=== PATIENT | male | born 1950 | race Caucasian/White ===

== ENCOUNTER 2022-07-15 18:38 | Inpatient (IN) | payer MEDICARE ==
[~2022-07-15 18:38] MED LIST: Iopamidol-370 76% 500 ML 1 ML ONE
[2022-07-15 20:12] LABS: #Eosinphils 0.2 thou/uL (0.0-0.7); #Lymphocytes 1.5 thou/uL (1.20-3.40); #Monocytes 0.7 thou/uL (0.11-0.59); #Neutrophils 4.1 thou/uL (1.40-6.50); %Basophils 0.6 % (0.0-1.0); %Eosinophils 3.2 % (0.0-10.0); %Lymphocytes 22.4 % (21.0-51.0); %Monocytes 10.9 % (0.0-10.0); %Neutrophils 62.9 % (42.0-75.0); Hemoglobin 9.7 g/dL (14.0-18.0); Platelet Count 223 10x3/uL (130-400); RBC Distribution Width 12.6 % (11.5-14.5); Red Blood Cell (RBC) Count 3.11 mill/uL (4.70-6.10); White Blood Cell (WBC) Count 6.5 10x3/uL (4.8-10.8)
[2022-07-15 20:31] LABS: ALT (SGPT) 9 U/L (8-55); AST (SGOT) 10 U/L (5-34); Albumin 3.6 g/dL (3.4-4.8); Alkaline Phosphatase 110 U/L (40-110); Anion Gap 13 mmol/L (10-20); BUN (Urea Nitrogen) 51 mg/dL (8.4-25.7); Bilirubin, Total 0.3 mg/dL (0.2-1.2); Calc. Creatinine Clearance 0 mL/min (70-130); Calcium 8.5 mg/dL (7.8-10.44); Carbon Dioxide 24 mmol/L (23-31); Chloride 104 mmol/L (98-107); Estimated GFR 31; Globulin 2.2 g/dL (2.4-3.5); Glucose 92 mg/dL (80-115); Lipase 44 U/L (8-78); Potassium 5.2 mmol/L (3.5-5.1); Protein, Total 5.8 g/dL (5.8-8.1); Sodium 136 mmol/L (136-145)
[2022-07-15 22:38] LABS: Troponin I 0.012 ng/mL (< 0.028)
[2022-07-15] MEDS ORDERED: Acetaminophen 325 MG TAB PO PRN (22:46)
[2022-07-15] MEDS ORDERED: HumaLOG 300 UNITS/3 ML VIAL SC PRN ×2 (22:46)
[2022-07-15] MEDS ORDERED: Dextrose 5% in Water 1,000 ML IV PRN (22:46)
[2022-07-15] MEDS ORDERED: Ondansetron PF 4 MG/2 ML Vial IVP PRN (22:46)
[2022-07-15] MEDS ORDERED: Nitroglycerin 0.4 MG TAB (25 Tab Bottle) SL PRN (22:46)
[2022-07-15] MEDS ORDERED: Ondansetron ODT 4 MG TAB PO PRN (22:46)
[2022-07-15] MEDS ORDERED: Acetaminophen 650 MG Suppository PR PRN (22:46)
[2022-07-15] MEDS ORDERED: Dextrose 50% Abboject 50 ML SYRINGE SLOW IVP PRN (22:46)
[2022-07-15] MEDS ORDERED: Pantoprazole 40 MG VIAL IVP SCH (23:15)
[2022-07-15] MEDS ORDERED: Pantoprazole 40 MG VIAL ONE (23:47)
[2022-07-16 03:13] LABS: #Eosinphils 0.3 thou/uL (0.0-0.7); #Lymphocytes 2.2 thou/uL (1.20-3.40); #Monocytes 0.8 thou/uL (0.11-0.59); #Neutrophils 4.2 thou/uL (1.40-6.50); %Basophils 0.4 % (0.0-1.0); %Eosinophils 4.1 % (0.0-10.0); %Monocytes 10.8 % (0.0-10.0); %Neutrophils 55.7 % (42.0-75.0); Hemoglobin 10.8 g/dL (14.0-18.0); Mean Corpuscular HGB CONC 34.7 g/dL (32.0-36.0); Mean Corpuscular Volume 92.3 fl (78.0-98.0); Mean Platelet Volume 7.7 fL (7.4-10.4); Platelet Count 239 10x3/uL (130-400); RBC Distribution Width 12.5 % (11.5-14.5); Red Blood Cell (RBC) Count 3.36 mill/uL (4.70-6.10); White Blood Cell (WBC) Count 7.6 10x3/uL (4.8-10.8)
[2022-07-16 03:34] LABS: Anion Gap 13 mmol/L (10-20); BUN (Urea Nitrogen) 48 mg/dL (8.4-25.7); Calc. Creatinine Clearance 0 mL/min (70-130); Calcium 8.8 mg/dL (7.8-10.44); Carbon Dioxide 20 mmol/L (23-31); Chloride 106 mmol/L (98-107); Estimated GFR 39; Glucose 98 mg/dL (80-115); Iron 69 ug/dL (65-175); Iron 73 ug/dL (65-175); Iron Binding Capacity, Total 293 mcg/dL (261-462); Iron Binding Capacity, Total 294 mcg/dL (261-462); Potassium 5.2 mmol/L (3.5-5.1); Sodium 134 mmol/L (136-145)
[2022-07-16 03:37] LABS: Troponin I 0.026 ng/mL (< 0.028)
[2022-07-16] MEDS ORDERED: Insulin Regular 300 UNITS/3 ML VIAL IVP SCH (08:30)
[2022-07-16] MEDS ORDERED: Dextrose 50% Abboject 50 ML SYRINGE SLOW IVP SCH (08:30)
[2022-07-16 08:51] LABS: Magnesium 1.7 mg/dL (1.6-2.6)
[2022-07-16] MEDS ORDERED: Pantoprazole 40 MG VIAL IVP SCH (09:00)
[2022-07-16] MEDS ORDERED: Aspirin Chewable 81 MG TAB ONE (09:01)
[2022-07-16] MEDS ORDERED: Insulin Regular 300 UNITS/3 ML VIAL ONE (09:02)
[2022-07-16] MEDS ORDERED: Dextrose 50% Abboject 50 ML SYRINGE ONE (09:02)
[2022-07-16] MEDS ORDERED: Pantoprazole 40 MG VIAL ONE (09:02)
[2022-07-16] MEDS: Aspirin Chewable 81 MG TAB PO SCH (09:06)
[2022-07-16] MEDS ORDERED: Heparin 10,000 UNITS/ 10 ML VIAL ONE (09:43)
[2022-07-16] MEDS ORDERED: ADENOSINE 60 MG/20 ML VIAL ONE (09:45)
[2022-07-16 12:48] LABS: Hemoglobin A1c 5.3 % (4.0-6.0)
[2022-07-16 15:25] VITALS: BMI 23.1
[2022-07-16] MEDS ORDERED: ALPRAZolam 1 MG TAB PO PRN (16:15)
[2022-07-16 17:13] LABS: Anion Gap 13 mmol/L (10-20); BUN (Urea Nitrogen) 38 mg/dL (8.4-25.7); Calc. Creatinine Clearance 57 mL/min (70-130); Calcium 9.3 mg/dL (7.8-10.44); Carbon Dioxide 24 mmol/L (23-31); Chloride 107 mmol/L (98-107); Estimated GFR 58; Glucose 110 mg/dL (80-115); Potassium 4.8 mmol/L (3.5-5.1); Sodium 139 mmol/L (136-145)
[2022-07-16] MEDS: Nicotine 14 MG PATCH TD SCH (18:24)
[2022-07-16] MEDS: Pantoprazole 40 MG VIAL IVP SCH (20:35)
[2022-07-16] MEDS: Atorvastatin Calcium 20 MG TAB PO SCH (20:35)
[2022-07-16] MEDS: QUEtiapine 100 MG TAB PO SCH (20:36)
[2022-07-16] MEDS: Atenolol 25 MG TAB PO SCH (20:36)
[2022-07-16] MEDS ORDERED: QUEtiapine 100 MG TAB PO SCH (21:00)
[2022-07-16] MEDS ORDERED: Atenolol 25 MG TAB PO SCH (21:00)
[2022-07-17 00:07] LABS: Bacteria/HPF None Seen HPF (None Seen); Bilirubin Negative (Negative); Blood, Urine Negative (Negative); Clarity Clear (Clear); Glucose, Urine (Dipstick) Normal (Negative); Ketone, Urine Negative (Negative); Leukocyte 25 Leu/uL (Negative); Nitrite Negative (Negative); Protein, Urine (Dipstick) Negative (Neg-Trace); RBC/HPF 0-3 HPF (0-3); Specific Gravity, Urine 1.017 (1.002-1.036); Squamous Epithelial None Seen HPF (0-3); Urobilinogen Normal mg/dL (Less than 2); pH, Urine 5.5 (5.0-9.0)
[2022-07-17 00:08] LABS: Sperm/HPF 3+ HPF (None Seen)
[2022-07-17 05:18] LABS: #Basophils 0.1 thou/uL (0.0-0.2); #Eosinphils 0.3 thou/uL (0.0-0.7); #Lymphocytes 2.3 thou/uL (1.20-3.40); #Monocytes 0.6 thou/uL (0.11-0.59); #Neutrophils 3.3 thou/uL (1.40-6.50); %Basophils 0.9 % (0.0-1.0); %Eosinophils 4.1 % (0.0-10.0); %Lymphocytes 34.9 % (21.0-51.0); %Monocytes 9.7 % (0.0-10.0); %Neutrophils 50.4 % (42.0-75.0); Hemoglobin 11.2 g/dL (14.0-18.0); Mean Corpuscular Hemoglobin 31.5 pg (27.0-31.0); Mean Corpuscular Volume 92.5 fl (78.0-98.0); Mean Platelet Volume 7.7 fL (7.4-10.4); Platelet Count 246 10x3/uL (130-400); RBC Distribution Width 12.6 % (11.5-14.5); Red Blood Cell (RBC) Count 3.57 mill/uL (4.70-6.10); White Blood Cell (WBC) Count 6.6 10x3/uL (4.8-10.8)
[2022-07-17 05:38] LABS: Anion Gap 12 mmol/L (10-20); BUN (Urea Nitrogen) 29 mg/dL (8.4-25.7); Calc. Creatinine Clearance 67 mL/min (70-130); Calcium 8.8 mg/dL (7.8-10.44); Carbon Dioxide 23 mmol/L (23-31); Chloride 107 mmol/L (98-107); Estimated GFR 71; Glucose 106 mg/dL (80-115); Potassium 4.4 mmol/L (3.5-5.1); Sodium 138 mmol/L (136-145)
[2022-07-17] MEDS: Levothyroxine Sodium 25 MCG TAB PO SCH (05:39)
[2022-07-17] MEDS: Atenolol 25 MG TAB PO SCH ×2 (09:30→21:16)
[2022-07-17] MEDS ORDERED: Midazolam HCl 2 mg/2 ml Vial ONE (10:29)
[2022-07-17] MEDS ORDERED: PROPOFOL 200 MG/20 ML VIAL ONE (10:36)
[2022-07-17] MEDS ORDERED: Lidocaine 1% PF 5 ML VIAL ONE (10:36)
[2022-07-17] MEDS: Aspirin Chewable 81 MG TAB PO SCH (11:20)
[2022-07-17] MEDS: Cyanocobalamin (Vitamin B-12) 1,000 MCG TAB PO SCH (11:40)
[2022-07-17] MEDS: Venlafaxine HCl XR 150 MG CAP PO SCH (11:41)
[2022-07-17] MEDS: Pantoprazole 40 MG VIAL IVP SCH (11:41)
[2022-07-17] MEDS: Nicotine 14 MG PATCH TD SCH (18:38)
[2022-07-17] MEDS: Atorvastatin Calcium 20 MG TAB PO SCH (21:16)
[2022-07-17] MEDS: QUEtiapine 100 MG TAB PO SCH (21:16)
[2022-07-17 22:29] LABS: Creatinine, Urine 78.56 mg/dL (63-166); Microalbumin Urine 4.7 mg/dL (0.5-50.0); Microalbumin/Creat Ratio 59.8 mg/g (Less than 30)
[2022-07-18 04:54] LABS: #Eosinphils 0.3 thou/uL (0.0-0.7); #Lymphocytes 2.8 thou/uL (1.20-3.40); #Monocytes 0.7 thou/uL (0.11-0.59); #Neutrophils 3.6 thou/uL (1.40-6.50); %Basophils 0.5 % (0.0-1.0); %Eosinophils 3.9 % (0.0-10.0); %Lymphocytes 37.8 % (21.0-51.0); %Monocytes 9.2 % (0.0-10.0); %Neutrophils 48.6 % (42.0-75.0); Hemoglobin 11.6 g/dL (14.0-18.0); Mean Corpuscular HGB CONC 34.2 g/dL (32.0-36.0); Mean Corpuscular Hemoglobin 31.8 pg (27.0-31.0); Mean Platelet Volume 7.9 fL (7.4-10.4); Platelet Count 230 10x3/uL (130-400); RBC Distribution Width 12.5 % (11.5-14.5); Red Blood Cell (RBC) Count 3.64 mill/uL (4.70-6.10); White Blood Cell (WBC) Count 7.4 10x3/uL (4.8-10.8)
[2022-07-18 05:22] LABS: Anion Gap 12 mmol/L (10-20); BUN (Urea Nitrogen) 22 mg/dL (8.4-25.7); Calc. Creatinine Clearance 69 mL/min (70-130); Calcium 8.7 mg/dL (7.8-10.44); Carbon Dioxide 24 mmol/L (23-31); Chloride 106 mmol/L (98-107); Estimated GFR 73; Glucose 96 mg/dL (80-115); Potassium 4.4 mmol/L (3.5-5.1); Sodium 138 mmol/L (136-145)
[2022-07-18] MEDS: Levothyroxine Sodium 25 MCG TAB PO SCH (05:39)
[2022-07-18] MEDS: Aspirin Chewable 81 MG TAB PO SCH (09:25)
[2022-07-18] MEDS: Atenolol 25 MG TAB PO SCH (09:25)
[2022-07-18] MEDS: Cyanocobalamin (Vitamin B-12) 1,000 MCG TAB PO SCH (09:26)
[2022-07-18] MEDS: Venlafaxine HCl XR 150 MG CAP PO SCH (09:26)
[2022-07-18 16:22] VITALS: BP 129/64; TEMP 98.8
[2022-07-18] MEDS ORDERED: Furosemide 20 MG TAB PO PRN (18:06)
[2022-07-18] MEDS: Nicotine 14 MG PATCH TD SCH (18:06)
== END 2022-07-18 19:05 | disposition home or self-care (01) | DRG 302 ==
LOC: ERS 18:38 → ERHOLD 21:43 → 2SW 07-16 14:55 → OBSVTOIN 07-16 17:03
PROVIDERS: ADMIT Student in an Organized Health Care Education/Training Program; ATTEND Family Medicine
PROC: 0DJ08ZZ Inspection of Upper Intestinal Tract, Via Natural or Artificial Opening Endoscopic (ICD-10-PCS; principal; 2022-07-17)
DX: I25.110 Atherosclerotic heart disease of native coronary artery with unstable angina pectoris (principal); K22.6 Gastro-esophageal laceration-hemorrhage syndrome; N17.9 Acute kidney failure, unspecified; I13.0 Hypertensive heart and chronic kidney disease with heart failure and stage 1 through stage 4 chronic kidney disease, or unspecified chronic kidney disease; I50.22 Chronic systolic (congestive) heart failure; E78.5 Hyperlipidemia, unspecified; K20.90 Esophagitis, unspecified without bleeding; I95.2 Hypotension due to drugs; T46.3X5A Adverse effect of coronary vasodilators, initial encounter; E87.5 Hyperkalemia; E11.65 Type 2 diabetes mellitus with hyperglycemia; E11.22 Type 2 diabetes mellitus with diabetic chronic kidney disease; E03.9 Hypothyroidism, unspecified; Z79.84 Long term (current) use of oral hypoglycemic drugs; Z95.5 Presence of coronary angioplasty implant and graft; Z79.890 Hormone replacement therapy; Z79.899 Other long term (current) drug therapy
CPT/HCPCS: 36415; 36416; 71045; 71275; 76770; 78452; 80048; 80053; 81001; 82043; 82728; 83036; 83540; 83550; 83690; 83735; 84156; 84443; 84484; 85025; 85379; 93005; 93017; 93306; 94640; 94760; 96360; 96361; 96372; 96374; 96375; 96376; A9500; C9113; G0378; J0153; J1644; J1650; J1815; J2250; J2704; J7611; J7999; Q9967; U0003; U0005

== ENCOUNTER 2022-07-28 22:59 | Inpatient (IN) | payer MEDICARE ==
[2022-07-28 23:51] LABS: #Eosinphils 0.4 thou/uL (0.0-0.7); #Lymphocytes 2.1 thou/uL (1.20-3.40); #Monocytes 0.5 thou/uL (0.11-0.59); %Basophils 0.6 % (0.0-1.0); %Eosinophils 6.1 % (0.0-10.0); %Lymphocytes 29.6 % (21.0-51.0); %Monocytes 7.4 % (0.0-10.0); %Neutrophils 56.3 % (42.0-75.0); Hemoglobin 11.3 g/dL (14.0-18.0); Mean Corpuscular HGB CONC 33.4 g/dL (32.0-36.0); Mean Corpuscular Hemoglobin 31.7 pg (27.0-31.0); Mean Corpuscular Volume 94.9 fl (78.0-98.0); Mean Platelet Volume 8.1 fL (7.4-10.4); Platelet Count 265 10x3/uL (130-400); RBC Distribution Width 12.8 % (11.5-14.5); Red Blood Cell (RBC) Count 3.57 mill/uL (4.70-6.10); White Blood Cell (WBC) Count 7.2 10x3/uL (4.8-10.8)
[2022-07-29 00:14] LABS: ALT (SGPT) 8 U/L (8-55); AST (SGOT) 13 U/L (5-34); Albumin 4.1 g/dL (3.4-4.8); Alkaline Phosphatase 95 U/L (40-110); Anion Gap 14 mmol/L (10-20); BUN (Urea Nitrogen) 37 mg/dL (8.4-25.7); Bilirubin, Total 0.2 mg/dL (0.2-1.2); Calc. Creatinine Clearance 0 mL/min (70-130); Calcium 9.4 mg/dL (7.8-10.44); Carbon Dioxide 29 mmol/L (23-31); Chloride 104 mmol/L (98-107); Estimated GFR 55; Globulin 2.6 g/dL (2.4-3.5); Glucose 119 mg/dL (80-115); Protein, Total 6.7 g/dL (5.8-8.1); Sodium 142 mmol/L (136-145)
[2022-07-29] MEDS ORDERED: Aspirin Chewable 81 MG TAB ONE (00:30)
[2022-07-29 03:39] VITALS: BMI 23.3
[2022-07-29 03:50] LABS: Troponin I 0.049 ng/mL (< 0.028)
[2022-07-29 06:08] LABS: Troponin I 0.084 ng/mL (< 0.028)
[2022-07-29 07:20] LABS: SARS-CoV-2 NAA Rapid Test Not Detected (NotDetected)
[2022-07-29 09:53] LABS: Troponin I 0.058 ng/mL (< 0.028)
[2022-07-29] MEDS ORDERED: Acetaminophen 325 MG TAB PO PRN (11:26)
[2022-07-29] MEDS ORDERED: Ondansetron PF 4 MG/2 ML Vial IVP PRN (11:26)
[2022-07-29] MEDS ORDERED: Senokot S 8.6-50 MG TAB PO PRN (11:26)
[2022-07-29] MEDS ORDERED: Ondansetron ODT 4 MG TAB PO PRN (11:26)
[2022-07-29] MEDS ORDERED: Nitroglycerin 0.4 MG TAB (25 Tab Bottle) SL PRN (11:28)
[2022-07-29] MEDS ORDERED: Dextrose 5% in Water 1,000 ML IV PRN (11:29)
[2022-07-29] MEDS ORDERED: HumaLOG 300 UNITS/3 ML VIAL SC PRN ×2 (11:29)
[2022-07-29] MEDS ORDERED: Dextrose 50% Abboject 50 ML SYRINGE SLOW IVP PRN (11:29)
[2022-07-29] MEDS ORDERED: Electrolyte Replacement Protocol FS SCH (11:30)
[2022-07-29] MEDS ORDERED: Sodium Chloride 0.9% 1,000 ML IV SCH (11:30)
[2022-07-29] MEDS: busPIRone HCl 10 MG TAB PO SCH ×2 (17:35→20:23)
[2022-07-29] MEDS: Atenolol 25 MG TAB PO SCH (20:20)
[2022-07-29] MEDS: Venlafaxine 75 MG TAB PO SCH (20:21)
[2022-07-29] MEDS: QUEtiapine 100 MG TAB PO SCH (20:22)
[2022-07-29] MEDS: Atorvastatin Calcium 20 MG TAB PO SCH (20:23)
[2022-07-30 05:39] LABS: #Basophils 0.1 thou/uL (0.0-0.2); #Eosinphils 0.4 thou/uL (0.0-0.7); #Lymphocytes 2.6 thou/uL (1.20-3.40); #Monocytes 0.7 thou/uL (0.11-0.59); #Neutrophils 5.9 thou/uL (1.40-6.50); %Basophils 0.5 % (0.0-1.0); %Eosinophils 3.7 % (0.0-10.0); %Lymphocytes 27.2 % (21.0-51.0); %Monocytes 7.1 % (0.0-10.0); %Neutrophils 61.4 % (42.0-75.0); Hemoglobin 10.9 g/dL (14.0-18.0); Mean Corpuscular HGB CONC 33.5 g/dL (32.0-36.0); Mean Corpuscular Hemoglobin 31.2 pg (27.0-31.0); Mean Corpuscular Volume 93.4 fl (78.0-98.0); Platelet Count 254 10x3/uL (130-400); RBC Distribution Width 12.6 % (11.5-14.5); White Blood Cell (WBC) Count 9.7 10x3/uL (4.8-10.8)
[2022-07-30 06:05] LABS: Anion Gap 14 mmol/L (10-20); BUN (Urea Nitrogen) 26 mg/dL (8.4-25.7); Calc. Creatinine Clearance 77 mL/min (70-130); Calcium 8.9 mg/dL (7.8-10.44); Carbon Dioxide 22 mmol/L (23-31); Chloride 105 mmol/L (98-107); Estimated GFR 83; Glucose 87 mg/dL (80-115); Magnesium 1.8 mg/dL (1.6-2.6); Potassium 3.9 mmol/L (3.5-5.1); Sodium 137 mmol/L (136-145)
[2022-07-30] MEDS: Levothyroxine Sodium 25 MCG TAB PO SCH (06:05)
[2022-07-30] MEDS ORDERED: Magnesium 2 GM/50 ML(in water) 2 GM in Premix Bag 1 BAG IVPB SCH (08:15)
[2022-07-30] MEDS ORDERED: ALPRAZolam 0.5 MG TAB PO PRN (08:45)
[2022-07-30] MEDS: Atenolol 25 MG TAB PO SCH ×2 (09:15→21:15)
[2022-07-30] MEDS: Venlafaxine 75 MG TAB PO SCH ×2 (09:16→21:16)
[2022-07-30] MEDS: QUEtiapine 100 MG TAB PO SCH ×2 (09:16→21:16)
[2022-07-30] MEDS: busPIRone HCl 10 MG TAB PO SCH ×3 (09:16→21:15)
[2022-07-30] MEDS: Atorvastatin Calcium 20 MG TAB PO SCH (21:16)
[2022-07-31 05:06] LABS: #Eosinphils 0.4 thou/uL (0.0-0.7); #Lymphocytes 2.4 thou/uL (1.20-3.40); #Monocytes 0.6 thou/uL (0.11-0.59); %Basophils 0.5 % (0.0-1.0); %Eosinophils 4.6 % (0.0-10.0); %Lymphocytes 28.3 % (21.0-51.0); %Monocytes 7.3 % (0.0-10.0); %Neutrophils 59.3 % (42.0-75.0); Hemoglobin 11.7 g/dL (14.0-18.0); Mean Corpuscular HGB CONC 33.9 g/dL (32.0-36.0); Mean Corpuscular Hemoglobin 31.6 pg (27.0-31.0); Mean Corpuscular Volume 93.2 fl (78.0-98.0); Mean Platelet Volume 7.8 fL (7.4-10.4); Platelet Count 247 10x3/uL (130-400); RBC Distribution Width 12.8 % (11.5-14.5); White Blood Cell (WBC) Count 8.4 10x3/uL (4.8-10.8)
[2022-07-31 05:36] LABS: Anion Gap 15 mmol/L (10-20); BUN (Urea Nitrogen) 20 mg/dL (8.4-25.7); Calc. Creatinine Clearance 71 mL/min (70-130); Calcium 8.9 mg/dL (7.8-10.44); Carbon Dioxide 21 mmol/L (23-31); Chloride 106 mmol/L (98-107); Estimated GFR 75; Glucose 97 mg/dL (80-115); Potassium 4.7 mmol/L (3.5-5.1); Sodium 137 mmol/L (136-145)
[2022-07-31] MEDS: Levothyroxine Sodium 25 MCG TAB PO SCH (06:27)
[2022-07-31] MEDS ORDERED: Communication Order-Pharmacy FS SCH (08:15)
[2022-07-31] MEDS: Venlafaxine 75 MG TAB PO SCH ×2 (08:27→20:49)
[2022-07-31] MEDS: busPIRone HCl 10 MG TAB PO SCH ×3 (08:28→20:50)
[2022-07-31] MEDS: QUEtiapine 100 MG TAB PO SCH ×2 (08:28→20:48)
[2022-07-31] MEDS: Atenolol 25 MG TAB PO SCH ×2 (08:28→20:47)
[2022-07-31] MEDS: Atorvastatin Calcium 20 MG TAB PO SCH (20:48)
[2022-08-01] MEDS ORDERED: Sodium Chloride 0.9% 500 ML IV SCH ×2 (00:01→08:30)
[2022-08-01 04:59] LABS: #Basophils 0.1 thou/uL (0.0-0.2); #Eosinphils 0.4 thou/uL (0.0-0.7); #Lymphocytes 2.3 thou/uL (1.20-3.40); #Monocytes 0.6 thou/uL (0.11-0.59); #Neutrophils 4.4 thou/uL (1.40-6.50); %Basophils 1.1 % (0.0-1.0); %Eosinophils 4.9 % (0.0-10.0); %Lymphocytes 29.7 % (21.0-51.0); %Monocytes 7.8 % (0.0-10.0); %Neutrophils 56.5 % (42.0-75.0); Hemoglobin 12.1 g/dL (14.0-18.0); Mean Corpuscular HGB CONC 34.2 g/dL (32.0-36.0); Mean Corpuscular Hemoglobin 31.7 pg (27.0-31.0); Mean Corpuscular Volume 92.7 fl (78.0-98.0); Mean Platelet Volume 7.7 fL (7.4-10.4); Platelet Count 234 10x3/uL (130-400); RBC Distribution Width 12.7 % (11.5-14.5); Red Blood Cell (RBC) Count 3.82 mill/uL (4.70-6.10); White Blood Cell (WBC) Count 7.8 10x3/uL (4.8-10.8)
[2022-08-01 05:26] LABS: ALT (SGPT) 8 U/L (8-55); AST (SGOT) 13 U/L (5-34); Albumin 3.7 g/dL (3.4-4.8); Alkaline Phosphatase 66 U/L (40-110); Anion Gap 14 mmol/L (10-20); BUN (Urea Nitrogen) 22 mg/dL (8.4-25.7); Bilirubin, Total 0.4 mg/dL (0.2-1.2); Calc. Creatinine Clearance 75 mL/min (70-130); Calcium 8.8 mg/dL (7.8-10.44); Carbon Dioxide 23 mmol/L (23-31); Chloride 105 mmol/L (98-107); Estimated GFR 81; Globulin 2.6 g/dL (2.4-3.5); Glucose 105 mg/dL (80-115); Protein, Total 6.3 g/dL (5.8-8.1); Sodium 138 mmol/L (136-145)
[2022-08-01] MEDS: Levothyroxine Sodium 25 MCG TAB PO SCH (05:28)
[2022-08-01] MEDS ORDERED: Nitroglycerin 100MG/250ML BOT 0 ML ONE (06:21)
[2022-08-01] MEDS ORDERED: Adenosine 6 MG/2 ML VIAL ONE (06:21)
[2022-08-01] MEDS ORDERED: Lidocaine 1% (PF) 30 ML VIAL ONE (06:21)
[2022-08-01] MEDS ORDERED: Heparin 10,000 UNITS/ 10 ML VIAL ONE (06:21)
[2022-08-01] MEDS: Atenolol 25 MG TAB PO SCH ×2 (06:22→19:32)
[2022-08-01] MEDS: Venlafaxine 75 MG TAB PO SCH ×2 (06:22→19:33)
[2022-08-01] MEDS: QUEtiapine 100 MG TAB PO SCH ×2 (06:22→19:32)
[2022-08-01] MEDS: busPIRone HCl 10 MG TAB PO SCH ×3 (06:22→19:32)
[2022-08-01] MEDS ORDERED: FENTANYL 50 MCG/ML 1 ML VIAL ONE (07:19)
[2022-08-01] MEDS ORDERED: Midazolam HCl 2 mg/2 ml Vial ONE (07:20)
[2022-08-01] MEDS ORDERED: Magnesium 2 GM/50 ML(in water) 2 GM in Premix Bag 1 BAG IVPB SCH (08:00)
[2022-08-01] MEDS ORDERED: Atropine Sulfate 1 mg/10 ml Syringe ONE (08:09)
[2022-08-01] MEDS ORDERED: Atropine Sulfate 1 mg/1 ml Vial ONE (08:09)
[2022-08-01] MEDS ORDERED: Acetaminophen/Codeine 30-300mg Tablet PO PRN (08:28)
[2022-08-01] MEDS ORDERED: Sodium Chloride 0.9% 200 ML IV PRN (08:28)
[2022-08-01] MEDS ORDERED: Iopamidol 370 76% 100 ML VIAL ONE (14:42)
[2022-08-01] MEDS: Atorvastatin Calcium 20 MG TAB PO SCH (19:32)
[2022-08-02 05:01] LABS: #Eosinphils 0.2 thou/uL (0.0-0.7); #Lymphocytes 0.3 thou/uL (1.20-3.40); #Monocytes 0.6 thou/uL (0.11-0.59); #Neutrophils 6.6 thou/uL (1.40-6.50); %Basophils 0.2 % (0.0-1.0); %Eosinophils 3.2 % (0.0-10.0); %Lymphocytes 4.3 % (21.0-51.0); %Monocytes 7.5 % (0.0-10.0); %Neutrophils 84.9 % (42.0-75.0); Hemoglobin 11.6 g/dL (14.0-18.0); Mean Corpuscular HGB CONC 34.9 g/dL (32.0-36.0); Mean Corpuscular Volume 91.6 fl (78.0-98.0); Platelet Count 214 10x3/uL (130-400); RBC Distribution Width 12.7 % (11.5-14.5); Red Blood Cell (RBC) Count 3.62 mill/uL (4.70-6.10); White Blood Cell (WBC) Count 7.8 10x3/uL (4.8-10.8)
[2022-08-02 05:17] LABS: Anion Gap 13 mmol/L (10-20); BUN (Urea Nitrogen) 23 mg/dL (8.4-25.7); Calc. Creatinine Clearance 62 mL/min (70-130); Calcium 8.8 mg/dL (7.8-10.44); Carbon Dioxide 23 mmol/L (23-31); Chloride 105 mmol/L (98-107); Estimated GFR 65; Glucose 115 mg/dL (80-115); Potassium 4.3 mmol/L (3.5-5.1); Sodium 137 mmol/L (136-145)
[2022-08-02] MEDS: Levothyroxine Sodium 25 MCG TAB PO SCH (05:40)
[2022-08-02] MEDS: Atenolol 25 MG TAB PO SCH ×2 (08:37→20:10)
[2022-08-02] MEDS: busPIRone HCl 10 MG TAB PO SCH ×3 (08:37→20:10)
[2022-08-02] MEDS: Venlafaxine 75 MG TAB PO SCH ×2 (08:38→20:10)
[2022-08-02] MEDS: QUEtiapine 100 MG TAB PO SCH ×2 (08:38→20:11)
[2022-08-02] MEDS ORDERED: Aspirin Chewable 81 MG TAB PO SCH (09:00)
[2022-08-02] MEDS ORDERED: Cyanocobalamin (Vitamin B-12) 1,000 MCG TAB PO SCH (09:00)
[2022-08-02 20:10] VITALS: BP 115/62; TEMP 97.8
[2022-08-02] MEDS: Atorvastatin Calcium 20 MG TAB PO SCH (20:10)
== END 2022-08-02 20:21 | disposition short-term general hospital (02) | DRG 287 ==
LOC: ERS 22:59 → ERHOLD 07-29 02:35 → OBSVTOIN 07-29 11:21 → 2SW 07-29 13:44
PROVIDERS: ADMIT Family Medicine; ATTEND Family Medicine
PROC: 4A023N8 Measurement of Cardiac Sampling and Pressure, Bilateral, Percutaneous Approach (ICD-10-PCS; principal; 2022-08-01)
PROC: B2111ZZ Fluoroscopy of Multiple Coronary Arteries using Low Osmolar Contrast (ICD-10-PCS; 2022-08-01)
DX: I25.110 Atherosclerotic heart disease of native coronary artery with unstable angina pectoris (principal); I50.42 Chronic combined systolic (congestive) and diastolic (congestive) heart failure; I13.0 Hypertensive heart and chronic kidney disease with heart failure and stage 1 through stage 4 chronic kidney disease, or unspecified chronic kidney disease; Z20.822 Contact with and (suspected) exposure to COVID-19; I08.0 Rheumatic disorders of both mitral and aortic valves; N18.30 Chronic kidney disease, stage 3 unspecified; D63.1 Anemia in chronic kidney disease; E78.5 Hyperlipidemia, unspecified; F41.9 Anxiety disorder, unspecified; F43.10 Post-traumatic stress disorder, unspecified; F17.290 Nicotine dependence, other tobacco product, uncomplicated; R77.8 Other specified abnormalities of plasma proteins; E11.22 Type 2 diabetes mellitus with diabetic chronic kidney disease; E03.9 Hypothyroidism, unspecified; F32.A Depression, unspecified; Z79.899 Other long term (current) drug therapy; Z79.890 Hormone replacement therapy; Z79.82 Long term (current) use of aspirin; Z79.84 Long term (current) use of oral hypoglycemic drugs; Z95.5 Presence of coronary angioplasty implant and graft; Z82.49 Family history of ischemic heart disease and other diseases of the circulatory system; Z87.19 Personal history of other diseases of the digestive system
CPT/HCPCS: 36415; 36416; 71045; 80048; 80053; 83735; 83880; 84484; 85025; 93005; 93460; 93798; 94760; 99152; 99153; C1760; C1769; C1894; G0378; J0153; J0461; J1644; J1650; J2001; J2250; J3010; J3475; J7030; J7050; Q9967

== ENCOUNTER 2022-11-05 22:52 | Emergency (ER) | payer MEDICARE ==
[2022-11-06] LABS: #Eosinphils 0.2 thou/uL (0.0-0.7); #Monocytes 0.5 thou/uL (0.11-0.59); #Neutrophils 6.6 thou/uL (1.40-6.50); %Basophils 0.2 % (0.0-1.0); %Eosinophils 1.9 % (0.0-10.0); %Lymphocytes 12.2 % (21.0-51.0); %Monocytes 6.1 % (0.0-10.0); %Neutrophils 79.2 % (42.0-75.0); Hemoglobin 11.9 g/dL (14.0-18.0); Mean Corpuscular HGB CONC 33.8 g/dL (32.0-36.0); Mean Corpuscular Hemoglobin 29.8 pg (27.0-31.0); Mean Corpuscular Volume 88.2 fl (78.0-98.0); Mean Platelet Volume 10.3 fL (7.4-10.4); Platelet Count 172 10x3/uL (130-400); Red Blood Cell (RBC) Count 3.99 mill/uL (4.70-6.10); White Blood Cell (WBC) Count 8.3 10x3/uL (4.8-10.8)
[2022-11-06 00:24] LABS: ALT (SGPT) 12 U/L (8-55); AST (SGOT) 18 U/L (5-34); Alkaline Phosphatase 119 U/L (40-110); Anion Gap 15 mmol/L (10-20); BUN (Urea Nitrogen) 19 mg/dL (8.4-25.7); Bilirubin, Total 0.3 mg/dL (0.2-1.2); CK (CPK) 65 U/L (30-200); Calc. Creatinine Clearance 0 mL/min (70-130); Carbon Dioxide 20 mmol/L (23-31); Chloride 104 mmol/L (98-107); Estimated GFR 71; Globulin 2.8 g/dL (2.4-3.5); Glucose 160 mg/dL (83-110); Lipase 19 U/L (8-78); Magnesium 1.4 mg/dL (1.6-2.6); Potassium 3.4 mmol/L (3.5-5.1); Protein, Total 6.8 g/dL (5.8-8.1); Sodium 136 mmol/L (136-145)
[2022-11-06] MEDS ORDERED: Magnesium 2 GM/50 ML BAG (IN WATER) ONE (02:27)
== END 2022-11-06 03:27 | disposition home or self-care (01) ==
LOC: ERS 22:52
DX: K06.8 Other specified disorders of gingiva and edentulous alveolar ridge (principal); E83.42 Hypomagnesemia; E11.9 Type 2 diabetes mellitus without complications; E78.5 Hyperlipidemia, unspecified; I10 Essential (primary) hypertension; Z79.82 Long term (current) use of aspirin; Z79.84 Long term (current) use of oral hypoglycemic drugs
CPT/HCPCS: 36415; 71045; 80053; 82550; 83605; 83690; 83735; 83880; 85025; 86850; 86900; 86901; 87040; 93005; 94760; 96365; J3475